=== PATIENT | female | born 1955 | race Caucasian/White ===

== ENCOUNTER → 2016-05-16 | Outpatient (CLI) | payer MEDICARE, OTHER ==
--- NOTE | 2016-05-16 13:33 | XR ---
EXAMINATION TYPE: XR chest 2V DATE OF EXAM: 05/16/2016 1:11 PM COMPARISON: Prior chest x-ray 07 April 2016 HISTORY: MRI clearance TECHNIQUE: Frontal and lateral views of the chest are obtained. FINDINGS: No interval change. Patient is post median sternotomy. Surgical clips are present. Promine nt lung volume may be indicative of COPD. No pneumothorax or pleural effusion. Cardiomediastinal silh ouette, pulmonary vascularity and holly are not significantly changed. Epicardial pacing leads are not evident. IMPRESSION: No acute cardiopulmonary process.
== END | disposition home or self-care (01) ==
LOC: RADXRMAIN 12:54
PROVIDERS: ATTEND Orthopaedic Surgery
DX: Z01.818 Encounter for other preprocedural examination (principal); M16.11 Unilateral primary osteoarthritis, right hip; M25.551 Pain in right hip
CPT/HCPCS: 71020